=== PATIENT | male | born 1950 | race African-American/Black ===

== ENCOUNTER 2017-01-17 14:09 | Emergency (ER) | payer OTHER ==
[~2017-01-17] VITALS: Ht 175.3 cm; Wt 99.8 kg
--- NOTE | ~2017-01-17 | EKG ---
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
[2017-01-17] MEDS ORDERED: JANUVIA100 MG PO (14:13)
[2017-01-17] MEDS ORDERED: GLIPIZIDE 10 MG10 MG PO (14:13)
[2017-01-17 14:41] LABS: ABSOLUTE NEUTROPHILS 3.2 thou/uL (1.4-8.2); EOSINOPHILS 3.2 % (0.0-3.0); HEMATOCRIT 40.9 % (42.0-52.0); HEMOGLOBIN 13.7 gm/dL (14.0-18.0); LYMPHOCYTES 29.2 % (24.0-44.0); MANUAL DIFF NO; MCH 28.5 pg (26.0-34.0); MCHC 33.4 g/dL (28.0-37.0); MCV 85.2 fL (80.0-100.0); MONOCYTES 11.7 % (1.0-8.0); PLATELET COUNT 296 thou/uL (150-400); POLYS 54.9 % (36.0-66.0); RDW 13.3 % (10.5-14.5); WBC 5.8 thou/uL (4.0-11.0)
[2017-01-17 16:05] LABS: ALBUMIN 3.9 g/dL (3.4-5.0); ALKALINE PHOSPHATASE 160 U/L (46-116); ANION GAP 7 mmol/L (7-16); BUN 16 mg/dL (7-18); CALCIUM 9.1 mg/dL (8.5-10.1); CHLORIDE 103 mmol/L (98-107); CO2 27 mmol/L (21-32); CREATININE 1.4 mg/dL (0.7-1.3); GLUCOSE 211 mg/dL (74-106); POTASSIUM 4.2 mmol/L (3.5-5.1); SGOT 24 U/L (15-37); SGPT 28 U/L (30-65); SODIUM 137 mmol/L (136-145); TOTAL BILIRUBIN 0.5 mg/dL (<0.1-1.0); TOTAL PROTEIN 7.6 g/dL (6.4-8.2); TROPONIN-I < 0.04 ng/mL (<0.04-0.07)
[2017-01-17 16:18] VITALS: BP 158/102
[2017-01-17 16:46] LABS: PROTIME 9.7 Seconds (9.3-11.4)
== END 2017-01-17 18:22 | disposition home or self-care (01) ==
LOC: ER 14:09
PROVIDERS: Physician Assistant
DX: I63.8 Other cerebral infarction (principal); Z87.891 Personal history of nicotine dependence; Z88.8 Allergy status to other drugs, medicaments and biological substances

== ENCOUNTER → 2018-09-23 | Outpatient (CLI) | payer OTHER ==
[~2018-09-23] MED LIST: ASPIR 8181 MG PO; GLIPIZIDE 10 MG10 MG PO; JANUVIA100 MG PO
== END ==
LOC: RAD 12:15
DX: R05 Cough (principal)

== ENCOUNTER → 2020-11-09 | Outpatient (CLI) | payer OTHER | LOC: RAD 11:35 | PROVIDERS: ATTEND Family Medicine | DX: M25.561 Pain in right knee (principal); M25.562 Pain in left knee ==

== ENCOUNTER 2020-12-12 19:37 | Emergency (ER) | payer OTHER ==
[~2020-12-12] VITALS: Ht 177.8 cm; Wt 90.7 kg
[2020-12-12] MEDS ORDERED: VICTOZA0.6 MG/0.1 SUBQ (19:57)
[2020-12-12] MEDS ORDERED: METFORMIN HCL1000 MG PO (19:57)
[2020-12-12 21:17] LABS: ABSOLUTE NEUTROPHILS 4.3 thou/uL (1.4-8.2); BASOPHILS 0.7 % (0.0-2.0); EOSINOPHILS 1.6 % (0.0-3.0); HEMATOCRIT 38.8 % (42.0-52.0); HEMOGLOBIN 12.6 gm/dL (14.0-18.0); LYMPHOCYTES 22.7 % (24.0-44.0); MCH 28.7 pg (26.0-34.0); MCHC 32.4 g/dL (28.0-37.0); MCV 88.7 fL (80.0-100.0); MONOCYTES 11.6 % (1.0-8.0); PLATELET COUNT 280 thou/uL (150-400); POLYS 63.4 % (36.0-66.0); RBC 4.38 mil/uL (4.50-6.00); WBC 6.7 thou/uL (4.0-11.0)
[2020-12-12 21:23] LABS: ANION GAP 8 mmol/L (7-16); BUN 10 mg/dL (7-18); CALCIUM 8.8 mg/dL (8.5-10.1); CHLORIDE 110 mmol/L (98-107); CO2 28 mmol/L (21-32); CREATININE 1.4 mg/dL (0.7-1.3); GLUCOSE 146 mg/dL (74-106); POTASSIUM 3.9 mmol/L (3.5-5.1); SODIUM 146 mmol/L (136-145)
[2020-12-12 21:31] LABS: TROPONIN-I <0.06 ng/mL (<0.06)
[2020-12-12 21:49] VITALS: BP 140/75
--- NOTE | 2020-12-13 07:21 | EKG ---
[place] [address] 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 : 1950 Requested By: Rajendra Rust Order Number: [id number] MD: Genaro Solis Measurements Intervals [place] Rate: 109 P: 61 CT: 146 QRS: 8 QRSD: 101 T: 158 QT: 348 QTc: 469 Interpretive Statements Sinus tachycardia Probable left atrial enlargement Abnormal T, consider ischemia, lateral leads Baseline wander in lead(s) V4 Compared to ECG 01/28/2017 07:15:08 T-wave abnormality now present Possible ischemia now present Sinus rhythm no longer present Electronically Signed On 12-13-2020 7:21:31 CDT by Genaro Solis [email or web address] <ELECTRONICALLY SIGNED> By: Genaro Solis MD, [facility] 12/13/2021 56 56 Genaro Solis MD, [facility] /EPI
== END 2020-12-12 22:48 | disposition home or self-care (01) ==
LOC: ER 19:37
PROVIDERS: Nurse Practitioner
DX: R06.00 Dyspnea, unspecified (principal); Z20.822 Contact with and (suspected) exposure to COVID-19; E11.9 Type 2 diabetes mellitus without complications; Z98.890 Other specified postprocedural states; Z79.84 Long term (current) use of oral hypoglycemic drugs; Z79.899 Other long term (current) drug therapy; Z87.891 Personal history of nicotine dependence

== ENCOUNTER 2020-12-14 04:24 | Inpatient (IN) | payer OTHER ==
[~2020-12-14] VITALS: Ht 175.3 cm; Wt 94.8 kg
[~2020-12-14 04:24] MED LIST changes: +METFORMIN HCL1000 MG PO; +VICTOZA0.6 MG/0.1 SUBQ
[2020-12-14 04:33] VITALS: BP 167/113
[2020-12-14 05:20] LABS: ABSOLUTE NEUTROPHILS 3.3 thou/uL (1.4-8.2); BASOPHILS 0.9 % (0.0-2.0); EOSINOPHILS 2.8 % (0.0-3.0); HEMATOCRIT 40.2 % (42.0-52.0); HEMOGLOBIN 13.3 gm/dL (14.0-18.0); LYMPHOCYTES 24.3 % (24.0-44.0); MCH 29.2 pg (26.0-34.0); MCV 88.7 fL (80.0-100.0); MONOCYTES 13.3 % (1.0-8.0); PLATELET COUNT 286 thou/uL (150-400); POLYS 58.7 % (36.0-66.0); RBC 4.53 mil/uL (4.50-6.00); RDW 13.1 % (10.5-14.5); WBC 5.6 thou/uL (4.0-11.0)
[2020-12-14 05:31] LABS: ANION GAP 11 mmol/L (7-16); BUN 11 mg/dL (7-18); CALCIUM 8.6 mg/dL (8.5-10.1); CHLORIDE 110 mmol/L (98-107); CO2 25 mmol/L (21-32); CREATININE 1.5 mg/dL (0.7-1.3); GLUCOSE 183 mg/dL (74-106); POTASSIUM 3.8 mmol/L (3.5-5.1); SODIUM 146 mmol/L (136-145)
[2020-12-14 05:41] LABS: ALBUMIN 3.5 g/dL (3.4-5.0); SGOT 23 U/L (15-37); SGPT 28 U/L (16-63); TOTAL BILIRUBIN 0.9 mg/dL (0.2-1.0); TOTAL PROTEIN 7.1 g/dL (6.4-8.2); TROPONIN-I <0.06 ng/mL (<0.06)
[2020-12-14 06:33] VITALS: BP 154/110
--- NOTE | 2020-12-14 07:11 | EKG ---
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 : 1950 Requested By: Cullen Arroyo Order Number: [id number] MD: Genaro Solis Measurements Intervals [place] Rate: 103 P: 58 VA: 140 QRS: -4 QRSD: 111 T: 121 QT: 371 QTc: 486 Interpretive Statements Sinus tachycardia Probable left atrial enlargement Abnormal T, consider ischemia, lateral leads Compared to ECG 12/12/2020 19:57:11 No significant changes Electronically Signed On 12-14-2020 7:11:36 CDT by Genaro Solis [email or web address] <ELECTRONICALLY SIGNED> By: Genaro Solis MD, [facility] 12/14/20 0711 0456 0456 Genaro Solis MD, FAC /EPI
[2020-12-14 07:34] VITALS: BP 144/107
[2020-12-14 08:51] LABS: CHOLESTEROL 218 mg/dL (<200); HDL CHOLESTEROL 53 mg/dL (>40); LDL CHOLESTEROL 151 mg/dL (<100); TC:HDL 4.1 Ratio (Not establshd); TRIGLYCERIDE 70 mg/dL (<150); VLDL 14 mg/dL (<40)
--- NOTE | 2020-12-14 09:56 | NUR ---
69-year-old male comes to the ED on 12-14-20 with chief complaint of shortness of breath. Patient has had shortness of breath which is worse at night for about a month and a half. Patient states he has difficulty laying down and has had to put pillows underneath his legs. ID NOW test in ED as negative and ED triage assessment has vaccinated with J&J. The patient has been admitted with Orthopnea, Elevated D-dimer but negative for PE per CTS, Acute on chronic renal failure, Hypernatremia, Diabetes and History of stroke. Cardiology has been consulted and diagnosed patient with Acute on Chronic CHF and began IV Lasix. The patient is a patient of Dr. Evan Cristobal arrived to the ED by private vehicle and listed as A&O x4. Next of Kin listed as Ashley Taylor at [phone]. Daughter Nette Webber [phone] is also listed as next of kin. As medical team reviews plan of care, CM will follow for discharge needs.
--- NOTE | 2020-12-14 12:45 | 2DMMODE ---
[facility] [place] [address] 2 D/M-MODE ECHOCARDIOGRAM Name: CODY PATEL JESE Room #: 464-P ADM IN M.R.#: [id number] Admission: 12/14/20 Attend Phys: Tj Castano Discharge: Date of : 50 Report #: [id number] THIS REPORT FOR: cc: Evan Cristobal James A. DO Park, Jin S. MD ~ APPROVED REPORT Study performed: 12/14/2020 11:06:08 EXAM: Comprehensive 2D, Doppler, and color-flow Echocardiogram Patient Location: Bedside Room #: 464 Status: routine BSA: 2.13 HR: 98 bpm BP: 144/107 mmHg Rhythm: NSR Other Information Study Quality: Good Indications Diabetes Dyspnea Hypertension/HDD 2D Dimensions RVDd: 36.08 mm IVSd: 8.64 (7-11mm) LVOT Diam: 21.03 (18-24mm) LVDd: 69.77 mm PWd: 8.28 (7-11mm) Ascending Ao: 33.00 (22-36mm) LVDs: 59.60 (25-40mm) Left Atrium: 33.37 (27-40mm) Aortic Root: 32.65 mm IVC: 16.00 mm Volumes Left Atrial Volume (Systole) Single Plane 4CH: 72.69 mL Single Plane 2CH: 51.02 mL LA ESV Index: 33.00 mL/m2 Aortic Valve AoV Peak Misael.: 1.17 m/s AO Peak Gr.: 5.44 mmHg LVOT Max P.20 mmHg [facility] [address] [place] [address] 2 D/M-MODE [facility]OCARDIOGRAM [facility]: [facility] Room #: 464-P [facility] IN [facility].#: [id number] Admission: 12/14/20 Attend Phys: Tj Elias Discharge: Date of : 50 Report #: [id number] LVOT Max V: 0.89 m/s BRENDA Vmax: 2.66 cm2 Pulmonary Valve PV Peak Misael.: 0.76 m/s PV Peak Gr.: 2.30 mmHg Left Ventricle Left ventricle is dilated. There is global hypokinesis of the left ventricle. There is normal left ventricular wall thickness. Left ventricular ejection fraction is severely decreased. LVEF is 25%. This study is not technically sufficient to allow evaluation of the LV diastolic function. Right Ventricle The right ventricle is normal size. The right ventricular systolic function is normal. Atria Left atrium is at the upper limits of normal. Right atrium is dilated. Aortic Valve The aortic valve is normal in structure. No aortic regurgitation is present. There is no aortic valvular stenosis. Mitral Valve The mitral valve is normal in structure. Mild to moderate mitral regurgitation. No evidence of mitral valve stenosis. Tricuspid Valve The tricuspid valve is normal in structure. There is no tricuspid valve regurgitation noted. Pulmonic Valve The pulmonary valve is normal in structure. Trace pulmonic regurgitation. Great Vessels The aortic root is normal in size. IVC is normal in size and collapses >50% with inspiration. Pericardium There is no pericardial effusion. <Conclusion> Left ventricle is dilated. [facility] [address] [place] [address] 2 D/M-MODE ECHOCARDIOGRAM [facility] Room #: 464-P ADM IN M.R.#: [id number] Admission: 12/14/20 Attend Phys: Tj Moore [facility] Discharge: Date of : 50 Report #: [id number] There is normal left ventricular wall thickness. Left ventricular ejection fraction is severely decreased. The right ventricle is normal size. Left atrium is at the upper limits of normal. The aortic valve is normal in structure. Mild to moderate mitral regurgitation. <ELECTRONICALLY SIGNED> By: Morgan Byrd MD 12/14/20 1244 1244 1244 Morgan Byrd MD /INF
--- NOTE | 2020-12-14 16:27 | NUR ---
Case opened to follow for dc planning. 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 He has health ins in place and sees his pcp Dr. Daily regularly. He denies an dc needs at this time. He wants his friend Ashley as his emergency contact and notes he has also updated his dtr and sisters of his admission and plans for heart cath. New dx of CHF. Support provided. Cm role introduced. Will follow along should dc needs arise.
--- NOTE | 2020-12-14 18:22 | NUR ---
Pt transferred from ED with SOB and CHF. His heart is emlarged with vascular congestion and pulmonary edema. He had a negative troponin and a 18 guage to right FA or AC. He is AXOX4 and ambulatory. He tested covid negative and had a cardiology consult. He signed a consent for a cardiac cath tomorrow . He feels pressure on his chest and was told by that he only had a 25% ejection fraction from heart. He is unable to rest. He does not have a advanced directive would like to be a full code. He is still making all his own medical decisions and wants to go back to work. He had a BM today and is continent of B/B. He is on RA. Oriented to room and understands fall policy. Bed in low position and call light within reach.
[2020-12-14 19:42] VITALS: BP 118/82
[2020-12-15] VITALS (10 sets, daily range): BP systolic 121–149; BP diastolic 76–107
--- NOTE | 2020-12-15 02:54 | NUR ---
PT IS A/O X4 AND IS UP AD JAVI. ROOM AIR. VSS AFEBRILE. C/O SOA. FOR COMFORT 2 LITERS O2 NC APPLIED AT [facility] FOR SLEEP. STATES HE HAS A HX OF SLEEP APNEA. MEDICATION GIVEN PER JUL. CALLS OUT APPROPRIATELY. NPO CURRENTLY AWAITING PROCEDURE IN THE AM.
[2020-12-15 04:09] LABS: ANION GAP 14 mmol/L (7-16); BUN 17 mg/dL (7-18); CALCIUM 9.1 mg/dL (8.5-10.1); CHLORIDE 106 mmol/L (98-107); CO2 23 mmol/L (21-32); CREATININE 1.5 mg/dL (0.7-1.3); GLUCOSE 146 mg/dL (74-106); POTASSIUM 3.6 mmol/L (3.5-5.1); SODIUM 143 mmol/L (136-145); TROPONIN-I <0.06 ng/mL (<0.06)
[2020-12-15 09:22] LABS: BE(vivo) 0.2 mmol/L (-2 to +3); HCO3 25.2 mmol/L (22.0-26.0); PCO2 42.1 mmHg (35.0-45.0); PO2 70.3 mmHg (80.0-100.0); pH 7.395 (7.360-7.450); sO2 94.1 % (92.0-98.0)
[2020-12-15 09:23] LABS: HCO3 27.3 mmol/L (22.0-26.0); PCO2 VENOUS 45.2 mmHg (41.0-51.0); PO2 VENOUS 36.8 mmHg (35.0-45.0)
--- NOTE | 2020-12-15 10:07 | NUR ---
PATIENT OFF UNIT FOR HEART CATH THIS AM BEFORE MEDS COULD BE PASSED OR ASSESSMENT COULD BE COMPLETED.
--- NOTE | 2020-12-15 13:40 | CATHLAB ---
[facility] [place] [address] INVASIVE PROCEDURE REPORT Name: CODY PATEL Room #: 464-P ADM IN M.R.#: [id number] Admission: 12/14/20 Attend Phys: Tj Castano Discharge: Date of : 50 Report #: [id number] THIS REPORT FOR: cc: Evan Cristobal James A. DO Park, Jin S. MD ~ APPROVED REPORT Study performed: 12/15/2020 08:11:24 Patient Details Patient Status: In-Patient Room #: The patient is a 69 year-old male Event Personnel Morgan Byrd Supply Analyst, Concetta Dove RTR Monitor, Paulino Fried RN RN, Tesha Baker RN RN, Maryuri Park RTR Scrub, Karol Shook RT(R)() Scrub Procedures Performed Art Access - R femoral artery* Matthew Access - R femoral vein Right and Left Heart Cath w/or w/o Coronarie [id number] [facility] Place w/wo Plasty Single LAD [id number] Hemostasis w/ Mynx 88544 Initial Mod Sed Same Phys/QHP Gr5y [id number] 38602 Mod Sed Same Phys/QHP Ea [id number] Indication CHF Current Status: , Dyspnea, Cardiomyopathy Risk Factors Cerebrovascular Disease, Hypercholesterolemia, Hypertension, Diabetes Previous Procedures/Diagnoses Previous CVA Procedure Narrative The Right Groin^ was infiltrated with 1% Lidocaine subcutaneous anesthesia. A PINNACLE 4FR Sheath #[id number] sheath was inserted into the RFA. Coronary angiography was performed using coronary diagnostic catheters. The right coronary system was accessed and visualized with a JR4 catheter. The left coronary system was accessed and visualized with a JL4 catheter. Pre-demployment femoral angiogram was performed . Closure device was deployed with a Fr MYNXGRIP 6/7F #[id number]. The patient tolerated the procedure well and there were no complications [place] [address] [place] [address] INVASIVE PROCEDURE REPORT Name: [facility] Room #: 464-P [facility] IN ..#: [id number] Admission: 12/14/20 Attend Phys: Tj Elias Discharge: Date of : 50 Report #: [id number] associated with the procedure. There was no hematoma. Intraoperative Conscious Sedation Sedation start time: 8:53 Case end Time: 10:03 Fentanyl 50 mcg Versed 1 mg Fluoro Time: 9.90 minutes Dose: DAP 17292.70 cGycm2 2261 mGy Contrast Type and Amount: Visipaque 205 ml Coronary Angiography The patient's coronary anatomy is co- dominant. Diagnostic Cath Left Main The left main artery is a large-caliber vessel, patent with no flow-limiting lesions. LAD The LAD is a moderate-sized caliber vessel, traverses the anterior wall and wraps around the apex. There is a severe occlusion in the proximal segment, 80%. There is a moderate, discrete stenosis in the apical LAD. Diagonal 1 This is a small to moderate-sized caliber vessel, patent with no flow-limiting lesions. Diagonal 2 There is a moderate-sized caliber vessel, supplies multiple branches. There is a moderate ostial stenosis, 40%. Circumflex The left circumflex artery is a codominant vessel with mild disease proximally. OM1 This is a small to moderate-sized caliber vessel, patent with no flow-limiting lesions. OM2 This is a moderate-sized caliber vessel, divides into 2 branches. There is a borderline stenosis in the proximal segment as well as the inferior branch, 60 to 70%. Recommend medical therapy. The superior branch is patent with no flow-limiting lesions. OM3 This is a small to moderate-sized caliber vessel, patent with no flow-limiting lesions. L ALBAN This is a small to moderate-sized caliber vessel, patent with no flow-limiting lesions. Right Coronary This is a moderate-sized caliber vessel with mild disease proximally. Supplies a PDA vessel. R PDA This is a small to moderate-sized caliber vessel, with a moderate stenosis at the proximal segment, 40%. Left Ventriculography Left Ventriculography was not performed. Ejection Fraction was [address] [address] INVASIVE PROCEDURE REPORT Name: [facility] Room #: 464-P ADM IN M.R.#: [id number] Admission: 12/14/20 Attend Phys: Tj Elias Discharge: Date of : 50 Report #: [id number] 25% based off patient's Echocardiogram. An LVEDP was measured and there is no gradient across the outflow tract. Hemodynamics The right atrial mean pressure is 9 mmHg. The right ventricular pressure is 35/4 mmHg. The pulmonary artery pressure is 31/13 mmHg with a mean of 19 mmHg. The mean pulmonary capillary wedge pressure is 13 mmHg. The aortic pressure is 126/84 mmHg with a mean of 106 mmHg. The left ventricular pressure is 134/15 mmHg with a mean of mmHg. The left ventricular end diastolic pressure is 19 mmHg. PaO2 saturation is 69.80 %. Arterial saturation is 91.70 %. The cardiac output using the Andrew method is 6.44 L/min. The cardiac index using the Andrew method is 3.07 L/min/m2. PCI Technique Lesion Percutaneous coronary intervention was performed on the proximal left anterior descending artery segment. The lesion stenosis prior to intervention was 80% with YASSINE 3 flow. A VISTA 6FR JL3.5 #[id number] Guide Catheter was used to engage the ostium. A Luge Wire .014 x 182CM #[id number] Interventional Guidewire was used to cross the lesion. BALLOON DILATION A Balloon catheter TREK RX 2.5 X 15 #[id number] was inserted and inflated up to 10.00atm for 14seconds. STENT DEPLOYMENT A drug-eluting stent RESOLUTE WM RX 3.0 X 22 #[id number] was inserted and inflated up to 14.00atm for 16seconds. POST STENT DEPLOYMENT BALLOON DILATION A Balloon catheter TREK NC RX 3.25 X 12 #[id number] was inserted and inflated up to 16.00atm for 20seconds. Additional Inflation: 16.00atm for 17seconds. Final angiography reveals 0 % stenosis with YASSINE 3 flow. Conclusion 1. Successful insertion of a drug-eluting stent to the proximal LAD stenosis. 2. There is a borderline stenosis in OM 2, recommend medical therapy. 3. This is a codominant system. 4. 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 5. Right-sided hemodynamics as measured. [facility] [address] [place] [address] INVASIVE PROCEDURE [facility]PORT [facility] Room #: 464-P ADM IN M.R.#: [id number] Admission: 12/14/20 Attend Phys: Tj Elias Discharge: Date of : 50 Report #: [id number] 6. Recommend dual antiplatelet therapy and guideline directed medical therapy <ELECTRONICALLY SIGNED> By: Morgan Byrd MD 12/15/20 1340 134 39 Morgan Byrd MD /INF
--- NOTE | 2020-12-15 18:42 | NUR ---
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
[2020-12-16 02:59] LABS: HEMATOCRIT 42.3 % (42.0-52.0); HEMOGLOBIN 13.7 gm/dL (14.0-18.0); MCH 28.8 pg (26.0-34.0); MCHC 32.5 g/dL (28.0-37.0); MCV 88.5 fL (80.0-100.0); RBC 4.78 mil/uL (4.50-6.00); RDW 13.3 % (10.5-14.5); WBC 6.6 thou/uL (4.0-11.0)
[2020-12-16 03:17] LABS: ALBUMIN 3.5 g/dL (3.4-5.0); CALCIUM 9.1 mg/dL (8.5-10.1); CREATININE 1.4 mg/dL (0.7-1.3); POTASSIUM 3.7 mmol/L (3.5-5.1); TOTAL BILIRUBIN 0.9 mg/dL (0.2-1.0); TOTAL PROTEIN 7.2 g/dL (6.4-8.2)
[2020-12-16 03:31] VITALS: BP 130/100
[2020-12-16 08:34] VITALS: BP 141/81
[2020-12-16] MEDS ORDERED: BAYER CHEWABLE81 MG PO (08:59)
[2020-12-16] MEDS ORDERED: LIPITOR 20 MG T20 M1 PO (08:59)
[2020-12-16] MEDS ORDERED: EFFIENT10 MG PO (08:59)
[2020-12-16] MEDS ORDERED: BENICAR20 MG PO (08:59)
[2020-12-16] MEDS ORDERED: COREG6.25 MG PO (08:59)
[2020-12-16 12:06] VITALS: BP 104/70
[2020-12-16 12:13] VITALS: BP 104/70
--- NOTE | 2020-12-16 14:02 | NUR ---
pt resting comfortably. took shower. up ad steffi. pt afebrile, adequate uop, no bm, appropriate appetite. groin site c/d/i. pt to be dc home at 1400. pt has been thouroughly updated and educated on pt condition and poc. pt progressed towards poc.
== END 2020-12-16 14:23 | disposition home or self-care (01) | DRG 246 ==
LOC: ER 04:24 → EROBS 05:43 → 4W 05:43 → 2N 12-15 15:00
PROVIDERS: Emergency Medicine; Internal Medicine Cardiovascular Disease; Nurse Practitioner; ADMIT Hospitalist; ATTEND Hospitalist
DX: I13.0 Hypertensive heart and chronic kidney disease with heart failure and stage 1 through stage 4 chronic kidney disease, or unspecified chronic kidney disease (principal); I50.21 Acute systolic (congestive) heart failure; N17.9 Acute kidney failure, unspecified; E87.0 Hyperosmolality and hypernatremia; Z20.822 Contact with and (suspected) exposure to COVID-19; N18.9 Chronic kidney disease, unspecified; E78.5 Hyperlipidemia, unspecified; E11.22 Type 2 diabetes mellitus with diabetic chronic kidney disease; I25.10 Atherosclerotic heart disease of native coronary artery without angina pectoris; E78.00 Pure hypercholesterolemia, unspecified; Z79.899 Other long term (current) drug therapy; Z86.73 Personal history of transient ischemic attack (TIA), and cerebral infarction without residual deficits; Z87.891 Personal history of nicotine dependence
CPT/HCPCS: 10045; 10081

== ENCOUNTER → 2020-12-23 | Outpatient (CLI) | payer OTHER ==
[~2020-12-23] MED LIST changes: +BAYER CHEWABLE81 MG PO; +BENICAR20 MG PO; +COREG6.25 MG PO; +EFFIENT10 MG PO; +LIPITOR 20 MG T20 M1 PO
== END ==
LOC: SJCVC 09:55
PROVIDERS: ATTEND Internal Medicine Cardiovascular Disease
DX: R94.31 Abnormal electrocardiogram [ECG] [EKG] (principal); I25.5 Ischemic cardiomyopathy; I11.0 Hypertensive heart disease with heart failure; I50.40 Unspecified combined systolic (congestive) and diastolic (congestive) heart failure; I25.812 Atherosclerosis of bypass graft of coronary artery of transplanted heart without angina pectoris; E78.00 Pure hypercholesterolemia, unspecified; G45.9 Transient cerebral ischemic attack, unspecified; I34.0 Nonrheumatic mitral (valve) insufficiency; Z79.82 Long term (current) use of aspirin; Z79.84 Long term (current) use of oral hypoglycemic drugs; Z86.73 Personal history of transient ischemic attack (TIA), and cerebral infarction without residual deficits; Z87.891 Personal history of nicotine dependence; Z72.89 Other problems related to lifestyle; F12.90 Cannabis use, unspecified, uncomplicated

== ENCOUNTER → 2021-01-20 | Outpatient (CLI) | payer OTHER | LOC: SJCVCIMAG 09:22 | PROVIDERS: ATTEND Internal Medicine Cardiovascular Disease | DX: I49.3 Ventricular premature depolarization (principal); R00.0 Tachycardia, unspecified; I25.812 Atherosclerosis of bypass graft of coronary artery of transplanted heart without angina pectoris; R06.00 Dyspnea, unspecified; I25.5 Ischemic cardiomyopathy; E78.5 Hyperlipidemia, unspecified; E78.00 Pure hypercholesterolemia, unspecified; E11.22 Type 2 diabetes mellitus with diabetic chronic kidney disease; I13.0 Hypertensive heart and chronic kidney disease with heart failure and stage 1 through stage 4 chronic kidney disease, or unspecified chronic kidney disease; N18.9 Chronic kidney disease, unspecified; I50.9 Heart failure, unspecified; F12.90 Cannabis use, unspecified, uncomplicated; Z86.16 Personal history of COVID-19; Z86.73 Personal history of transient ischemic attack (TIA), and cerebral infarction without residual deficits; Z87.891 Personal history of nicotine dependence; Z79.82 Long term (current) use of aspirin; Z79.84 Long term (current) use of oral hypoglycemic drugs; Z79.899 Other long term (current) drug therapy; Z72.89 Other problems related to lifestyle ==

== ENCOUNTER → 2021-02-17 | Outpatient (CLI) | payer OTHER | LOC: SJCVC 10:55 | PROVIDERS: ATTEND Internal Medicine Cardiovascular Disease | DX: R94.31 Abnormal electrocardiogram [ECG] [EKG] (principal); I25.5 Ischemic cardiomyopathy; I13.0 Hypertensive heart and chronic kidney disease with heart failure and stage 1 through stage 4 chronic kidney disease, or unspecified chronic kidney disease; N18.9 Chronic kidney disease, unspecified; I50.40 Unspecified combined systolic (congestive) and diastolic (congestive) heart failure; I25.10 Atherosclerotic heart disease of native coronary artery without angina pectoris; E78.00 Pure hypercholesterolemia, unspecified; I34.0 Nonrheumatic mitral (valve) insufficiency; G45.9 Transient cerebral ischemic attack, unspecified; Z87.891 Personal history of nicotine dependence; Z72.89 Other problems related to lifestyle; Z79.82 Long term (current) use of aspirin; Z79.84 Long term (current) use of oral hypoglycemic drugs; Z79.899 Other long term (current) drug therapy; Z86.73 Personal history of transient ischemic attack (TIA), and cerebral infarction without residual deficits ==

== ENCOUNTER → 2021-03-20 | Outpatient (CLI) | payer OTHER | LOC: SJCVCIMAG 11:03 | PROVIDERS: ATTEND Internal Medicine Cardiovascular Disease | DX: R94.31 Abnormal electrocardiogram [ECG] [EKG] (principal); I13.10 Hypertensive heart and chronic kidney disease without heart failure, with stage 1 through stage 4 chronic kidney disease, or unspecified chronic kidney disease; E11.22 Type 2 diabetes mellitus with diabetic chronic kidney disease; N18.9 Chronic kidney disease, unspecified; I25.10 Atherosclerotic heart disease of native coronary artery without angina pectoris; I42.9 Cardiomyopathy, unspecified; I10 Essential (primary) hypertension; E78.00 Pure hypercholesterolemia, unspecified; E78.5 Hyperlipidemia, unspecified; Z86.73 Personal history of transient ischemic attack (TIA), and cerebral infarction without residual deficits; Z79.82 Long term (current) use of aspirin; Z79.84 Long term (current) use of oral hypoglycemic drugs; Z79.899 Other long term (current) drug therapy; Z87.891 Personal history of nicotine dependence; Z72.89 Other problems related to lifestyle ==

== ENCOUNTER → 2021-04-10 | Outpatient (CLI) | payer OTHER | LOC: SJCVC 11:14 | PROVIDERS: ATTEND Nurse Practitioner | DX: I42.9 Cardiomyopathy, unspecified (principal); I25.10 Atherosclerotic heart disease of native coronary artery without angina pectoris; I34.0 Nonrheumatic mitral (valve) insufficiency; E78.00 Pure hypercholesterolemia, unspecified; G45.9 Transient cerebral ischemic attack, unspecified; I12.9 Hypertensive chronic kidney disease with stage 1 through stage 4 chronic kidney disease, or unspecified chronic kidney disease; E11.22 Type 2 diabetes mellitus with diabetic chronic kidney disease; N18.9 Chronic kidney disease, unspecified; Z95.5 Presence of coronary angioplasty implant and graft; F17.210 Nicotine dependence, cigarettes, uncomplicated; Z79.82 Long term (current) use of aspirin; Z79.84 Long term (current) use of oral hypoglycemic drugs; Z79.899 Other long term (current) drug therapy ==